=== PATIENT | male | born 1930 | race Caucasian/White ===

== ENCOUNTER 2016-11-07 08:28 | Emergency (ER) | payer MEDICARE, BC ==
[2016-11-07 08:35] VITALS: RESP 16; TEMP 97.4
[2016-11-07] MEDS: KETOROLAC TROMETHAMINE 30 MG/ML SOL IM ONE (09:01)
[2016-11-07] MEDS: CYCLOBENZAPRINE 10 MG TAB PO ONE (09:04)
[2016-11-07] MEDS ORDERED: CYCLOBENZAPRINE 10 MG TAB ONE (09:05)
[2016-11-07] MEDS ORDERED: KETOROLAC TROMETHAMINE 30 MG/ML SOL ONE (09:05)
[2016-11-07] MEDS: LIDOCAINE 5% PATCH 1 PATCH TDM TOP ONE (09:20)
[2016-11-07 10:17] LABS: APPEARANCE,URINE Slightly Cloudy; BILIRUBIN,URINE NEGATIVE (NEGATIVE); COLOR,URINE Yellow; GLUCOSE, URINE (UA) NEGATIVE (NEGATIVE); KETONES,URINE NEGATIVE (NEGATIVE); LEUKOCYTE ESTERASE ,URINE NEGATIVE (NEGATIVE); NITRATE,URINE NEGATIVE (NEGATIVE); OCCULT BLOOD,URINE TRACE INTACT (NEG-TRACE); PH,URINE 5.5; UROBILINOGEN,URINE 0.2 (0.2-1.0 EU)
[2016-11-07 10:26] VITALS: BP 158/92; PULSE 75; O2SAT 99
[2016-11-07 10:40] LABS: RBC,URINE 0-5 (0-3AV/HPF); WBC,URINE 0-2 (0-5AV/HPF)
== END 2016-11-07 12:05 | disposition home or self-care (01) | DRG 552 ==
LOC: ED 08:28
DX: M54.5 Low back pain (principal); M62.830 Muscle spasm of back
CPT/HCPCS: 72120; 81001; 99283; J1885

== ENCOUNTER 2016-11-25 08:35 | Emergency (ER) | payer MEDICARE, BC ==
[2016-11-25] MEDS ORDERED: IBUPROFEN 400 MG TAB ONE (08:48)
[2016-11-25] MEDS ORDERED: APAP/OXYCODONE 325/5 TAB ONE (08:48)
[2016-11-25] MEDS: IBUPROFEN 400 MG TAB PO ONE (08:50)
[2016-11-25] MEDS: APAP/OXYCODONE 325/5 TAB PO ONE (08:50)
[2016-11-25 09:02] VITALS: O2SAT 100
[2016-11-25 09:42] VITALS: RESP 20
[2016-11-25] MEDS ORDERED: KETOROLAC TROMETHAMINE 30 MG/ML SOL ONE (10:48)
[2016-11-25] MEDS: KETOROLAC TROMETHAMINE 30 MG/ML SOL IM ONE ×2 (10:52→10:53)
[2016-11-25 11:26] VITALS: BP 152/85; PULSE 100; TEMP 99.4
[2016-11-25] MEDS ORDERED: DIAZEPAM 5MG/ML SOL ONE (12:13)
[2016-11-25] MEDS: DIAZEPAM 5MG/ML SOL IM ONE (12:15)
== END 2016-11-25 13:10 | disposition home or self-care (01) | DRG 552 ==
LOC: ED 08:35
DX: M54.5 Low back pain (principal); G89.29 Other chronic pain
CPT/HCPCS: 80048; 81001; 85025; 99284; J1885; J3360

== ENCOUNTER 2016-11-25 13:17 | Day surgery (SDC) | payer MEDICARE, BC ==
[2016-11-25 09:47] LABS: BASOPHILS % (AUTO) 1 % (0-3); EOSINOPHILS % (AUTO) 2 % (0-9); HEMATOCRIT 48 % (39-53); MEAN CORPUSCULAR HGB CONC 35.5 gm/dl (32.0-36.0); MEAN CORPUSCULAR VOLUME 88 fL (80-100); MONOCYTES % (AUTO) 6.9 % (0-12); NEUTROPHILS % (AUTO) 84.9 % (37-80)
[2016-11-25 09:54] LABS: APPEARANCE,URINE Cloudy; BILIRUBIN,URINE NEGATIVE (NEGATIVE); COLOR,URINE Yellow; GLUCOSE, URINE (UA) NEGATIVE (NEGATIVE); KETONES,URINE 2+ (NEGATIVE); LEUKOCYTE ESTERASE ,URINE NEGATIVE (NEGATIVE); NITRATE,URINE NEGATIVE (NEGATIVE); OCCULT BLOOD,URINE TRACE INTACT (NEG-TRACE); PH,URINE 8.5; UROBILINOGEN,URINE 0.2 (0.2-1.0 EU)
[2016-11-25 09:55] LABS: CALCIUM 8.8 mg/dl (8.5-10.1); POTASSIUM 3.7 mMol/L (3.5-5.1)
[2016-11-25 10:16] LABS: RBC,URINE 0-1 (0-3AV/HPF)
[2016-11-25 13:42] VITALS: TEMP 97.8
[2016-11-25] MEDS ORDERED: TRIAMCINOLONE ACETONIDE 40 MG/ML SUS ONE (14:24)
[2016-11-25 15:18] VITALS: BP 145/95; PULSE 80; RESP 18; O2SAT 98
== END 2016-11-25 15:10 | disposition home or self-care (01) | DRG 552 ==
LOC: SURG 13:17
PROVIDERS: ATTEND Nurse Anesthetist, Certified Registered
DX: M54.5 Low back pain (principal); G89.29 Other chronic pain; M54.16 Radiculopathy, lumbar region
CPT/HCPCS: 36415; 80048; 81001; 85025; 96372; 99283; 99284; J1885; J3360; J3300

== ENCOUNTER 2017-04-24 09:17 | Outpatient (CLI) | payer MEDICARE, BC ==
[2017-03-19 12:06] VITALS: O2SAT 96
== END 2017-04-24 09:18 | disposition home or self-care (01) | DRG 554 ==
LOC: CONVCARE 09:17
PROVIDERS: ATTEND Orthopaedic Surgery
DX: M17.11 Unilateral primary osteoarthritis, right knee (principal)
CPT/HCPCS: 73564

== ENCOUNTER 2017-05-07 12:30 | Inpatient (IN) | payer MEDICARE, BC ==
[2017-05-21] MEDS ORDERED: LACTATED RINGERS 1,000 ML IV ONE (11:00)
[2017-05-21] MEDS ORDERED: SCOPOLAMINE 1.5MG PATCH TD SCH (11:00)
[2017-05-21] MEDS: SODIUM CHLORIDE 0.9% FLUSH 10 ML SOL IV PRN (11:00)
[2017-05-21] MEDS ORDERED: LACTATED RINGERS 1,000 ML IV SCH (12:00)
[2017-05-21] MEDS ORDERED: DEXAMETHASONE 20 MG/5 ML (4 MG/ML SOL) ONE (12:26)
[2017-05-21] MEDS ORDERED: ONDANSETRON HCL 4 MG/2 ML SOL ONE (12:26)
[2017-05-21] MEDS ORDERED: PROPOFOL 500 MG/50 ML EMU IV ONE (12:26)
[2017-05-21] MEDS ORDERED: LIDOCAINE HCL 1% MPF SOL ONE (12:26)
[2017-05-21] MEDS ORDERED: MIDAZOLAM 2 MG/2 ML SOL ONE (12:26)
[2017-05-21] MEDS ORDERED: TRANEXAMIC ACID 100 MG/ML SOL ONE (12:57)
[2017-05-21] MEDS ORDERED: SODIUM CHLORIDE 20 ML 40 ML ONE (12:57)
[2017-05-21] MEDS ORDERED: CEFAZOLIN SODIUM 1 GM PDS ONE (14:17)
[2017-05-21] MEDS ORDERED: EPHEDRINE SULFATE 50 MG/ML SOL ONE (14:43)
[2017-05-21] MEDS ORDERED: PHENYLEPHRINE HYDROCHLORIDE 10 MG/ML SOL ONE (14:43)
[2017-05-21] MEDS ORDERED: GLYCOPYRROLATE 0.2 MG/ML SOL ONE (14:43)
[2017-05-21] MEDS: BUPIVACAINE LIPOSOME 20 ML SUS ONE ×2 (14:50→15:25)
[2017-05-21] MEDS ORDERED: PROPOFOL 10 MG/ML EMU IV ONE (15:08)
[2017-05-21] MEDS ORDERED: DIPHENHYDRAMINE 25 MG CAP PO PRN (15:34)
[2017-05-21] MEDS ORDERED: SODIUM CHLORIDE 0.9% 500 ML 500 ML IV PRN (15:34)
[2017-05-21] MEDS ORDERED: DIPHENHYDRAMINE 50 MG/ML SOL IV PRN (15:34)
[2017-05-21] MEDS ORDERED: BISACODYL 10 MG SUP PR PRN (15:34)
[2017-05-21] MEDS ORDERED: MAGNESIUM HYDROXIDE 30 ML SUS PO PRN (15:34)
[2017-05-21] MEDS ORDERED: ONDANSETRON 4 MG ODT BU PRN (15:34)
[2017-05-21] MEDS ORDERED: ALUMINUM/MAGNESIUM 30 ML SUS PO PRN (15:34)
[2017-05-21] MEDS ORDERED: FLEET ENEMA PR PRN (15:34)
[2017-05-21] MEDS ORDERED: TEMAZEPAM 15MG 15 MG CAP PO PRN (15:34)
[2017-05-21] MEDS ORDERED: BUPIVACAINE/EPI 0.25% 50 ML SOL ONE (16:24)
[2017-05-21] MEDS: SODIUM CHLORIDE 0.9% FLUSH 10 ML SOL IV SCH (17:28)
[2017-05-21] MEDS: DEXTROSE/SALINE 0.45% 1,000 ML IV SCH (17:32)
[2017-05-21] MEDS: APAP/HYDROCODONE 325/5 TAB PO PRN (20:39)
[2017-05-21] MEDS: ATORVASTATIN 10 MG TAB PO SCH (20:39)
[2017-05-21] MEDS: SENNOSIDES A AND B 8.6 MG TAB PO SCH (20:39)
[2017-05-21] MEDS: TAMSULOSIN HYDROCHLORIDE 0.4 MG CAP PO SCH (20:39)
[2017-05-21] MEDS: ONDANSETRON HCL 4 MG/2 ML SOL IV PRN (20:45)
[2017-05-21] MEDS: CEFAZOLIN (PREMIX) 1 GM 1 GM/50 ML SOL IV SCH (22:05)
[2017-05-21] MEDS: DIAZEPAM 5 MG TAB PO PRN (22:59)
[2017-05-22] MEDS: MORPHINE SULFATE 10 MG/ML SOL IV PRN ×6 (00:04→20:48)
[2017-05-22] MEDS: SODIUM CHLORIDE 0.9% FLUSH 10 ML SOL IV SCH ×3 (00:07→17:42)
[2017-05-22] MEDS: CEFAZOLIN (PREMIX) 1 GM 1 GM/50 ML SOL IV SCH (05:56)
[2017-05-22] MEDS: DEXTROSE/SALINE 0.45% 1,000 ML IV SCH (07:22)
[2017-05-22 07:32] LABS: MEAN CORPUSCULAR HGB CONC 34.6 gm/dl (32.0-36.0)
[2017-05-22] MEDS: ONDANSETRON HCL 4 MG/2 ML SOL IV PRN (08:40)
[2017-05-22] MEDS ORDERED: OMEPRAZOLE 20 MG CAPSULE PO SCH (09:00)
[2017-05-22] MEDS ORDERED: RIVAROXABAN 10 MG TAB PO SCH (09:00)
[2017-05-22] MEDS: ENOXAPARIN 40 MG SOL SC SCH (10:18)
[2017-05-22] MEDS: APAP/HYDROCODONE 325/5 TAB PO PRN ×4 (10:19→21:25)
[2017-05-22] MEDS: PANTOPRAZOLE SODIUM 40 MG ECT PO SCH (10:20)
[2017-05-22] MEDS: METOPROLOL SUCCINATE 25 MG TAB.ER.24H PO SCH (10:20)
[2017-05-22] MEDS ORDERED: SODIUM CHLORIDE 0.9% FLUSH 10 ML SOL IV SCH (13:00)
[2017-05-22] MEDS: DIAZEPAM 5 MG TAB PO PRN (20:18)
[2017-05-22] MEDS: SENNOSIDES A AND B 8.6 MG TAB PO SCH (20:19)
[2017-05-22] MEDS: TAMSULOSIN HYDROCHLORIDE 0.4 MG CAP PO SCH (20:20)
[2017-05-22] MEDS: ATORVASTATIN 10 MG TAB PO SCH (20:20)
[2017-05-22] MEDS: SODIUM CHLORIDE 0.9% FLUSH 10 ML SOL IV PRN (20:49)
[2017-05-23] MEDS: MORPHINE SULFATE 10 MG/ML SOL IV PRN ×2 (00:25→23:05)
[2017-05-23] MEDS: SODIUM CHLORIDE 0.9% FLUSH 10 ML SOL IV SCH ×4 (00:26→20:24)
[2017-05-23] MEDS: APAP/HYDROCODONE 325/5 TAB PO PRN ×4 (05:40→20:22)
[2017-05-23] MEDS: ENOXAPARIN 40 MG SOL SC SCH (08:27)
[2017-05-23] MEDS: PANTOPRAZOLE SODIUM 40 MG ECT PO SCH (08:33)
[2017-05-23] MEDS: METOPROLOL SUCCINATE 25 MG TAB.ER.24H PO SCH (08:33)
[2017-05-23] MEDS: WARFARIN SODIUM 5 MG TAB PO SCH (17:47)
[2017-05-23] MEDS: ATORVASTATIN 10 MG TAB PO SCH (20:22)
[2017-05-23] MEDS: TAMSULOSIN HYDROCHLORIDE 0.4 MG CAP PO SCH (20:22)
[2017-05-23] MEDS: SENNOSIDES A AND B 8.6 MG TAB PO SCH (20:22)
[2017-05-24] MEDS: APAP/HYDROCODONE 325/5 TAB PO PRN ×6 (01:48→20:55)
[2017-05-24] MEDS: SODIUM CHLORIDE 0.9% FLUSH 10 ML SOL IV SCH ×5 (02:29→22:55)
[2017-05-24 06:59] LABS: MEAN CORPUSCULAR HGB CONC 34.5 gm/dl (32.0-36.0)
[2017-05-24] MEDS: PANTOPRAZOLE SODIUM 40 MG ECT PO SCH (09:21)
[2017-05-24] MEDS: METOPROLOL SUCCINATE 25 MG TAB.ER.24H PO SCH (09:22)
[2017-05-24] MEDS: ENOXAPARIN 40 MG SOL SC SCH (09:24)
[2017-05-24] MEDS: WARFARIN SODIUM 5 MG TAB PO SCH (17:08)
[2017-05-24] MEDS: ATORVASTATIN 10 MG TAB PO SCH (20:55)
[2017-05-24] MEDS: TAMSULOSIN HYDROCHLORIDE 0.4 MG CAP PO SCH (20:56)
[2017-05-24] MEDS: SENNOSIDES A AND B 8.6 MG TAB PO SCH (20:56)
[2017-05-25] MEDS: APAP/HYDROCODONE 325/5 TAB PO PRN ×3 (01:10→08:36)
[2017-05-25 07:28] LABS: APPEARANCE,URINE Clear; BILIRUBIN,URINE NEGATIVE (NEGATIVE); COLOR,URINE Yellow; GLUCOSE, URINE (UA) NEGATIVE (NEGATIVE); KETONES,URINE NEGATIVE (NEGATIVE); LEUKOCYTE ESTERASE ,URINE NEGATIVE (NEGATIVE); NITRATE,URINE NEGATIVE (NEGATIVE); OCCULT BLOOD,URINE 2+ (NEG-TRACE)
[2017-05-25 07:47] LABS: RBC,URINE 15-20 (0-3AV/HPF); WBC,URINE 0-2 (0-5AV/HPF)
[2017-05-25 08:01] VITALS: BP 148/74; PULSE 116; RESP 21; TEMP 97.9; O2SAT 96
[2017-05-25] MEDS: ENOXAPARIN 40 MG SOL SC SCH (08:34)
[2017-05-25] MEDS: METOPROLOL SUCCINATE 25 MG TAB.ER.24H PO SCH (08:35)
[2017-05-25] MEDS: SODIUM CHLORIDE 0.9% FLUSH 10 ML SOL IV SCH (08:35)
[2017-05-25] MEDS: PANTOPRAZOLE SODIUM 40 MG ECT PO SCH (08:35)
== END 2017-05-25 11:20 | disposition swing bed (61) | DRG 470 ==
LOC: ACUTE CARE 05-21 10:32
PROVIDERS: ADMIT Orthopaedic Surgery; ATTEND Orthopaedic Surgery
PROC: 0SCC0ZZ Extirpation of Matter from Right Knee Joint, Open Approach (ICD-10-PCS; 2017-05-21)
PROC: 0SRC0J9 Replacement of Right Knee Joint with Synthetic Substitute, Cemented, Open Approach (ICD-10-PCS; principal; 2017-05-21 13:00)
PROC: F02Z1ZZ Dressing Assessment (ICD-10-PCS; 2017-05-22)
PROC: F02Z3ZZ Grooming/Personal Hygiene Assessment (ICD-10-PCS; 2017-05-22)
PROC: F01ZDZZ Gait and/or Balance Assessment (ICD-10-PCS; 2017-05-22)
PROC: F01ZBZZ Bed Mobility Assessment (ICD-10-PCS; 2017-05-22)
DX: M17.11 Unilateral primary osteoarthritis, right knee (principal); I48.91 Unspecified atrial fibrillation; M10.9 Gout, unspecified; Z96.651 Presence of right artificial knee joint; R33.9 Retention of urine, unspecified
CPT/HCPCS: 36415; 51798; 73560; 81001; 84550; 85027; 85610; 94150; 99070; J0690; J1100; J1200; J1650; J2250; J2270; J2405; J7643; A6232; J2001; J2704; L1830; Q3014

== ENCOUNTER 2017-05-20 11:18 | Day surgery (SDC) | payer MEDICARE, BC ==
[2017-05-20 11:28] VITALS: TEMP 97; O2SAT 97
[2017-05-20] MEDS: TRIAMCINOLONE ACETONIDE 40 MG/ML SUS IM ONE (12:02)
[2017-05-20 12:14] VITALS: BP 106/66; PULSE 81; RESP 14
== END 2017-05-20 17:10 | disposition home or self-care (01) | DRG 552 ==
LOC: SURG 11:18
PROVIDERS: ATTEND Nurse Anesthetist, Certified Registered
DX: M54.5 Low back pain (principal); M54.16 Radiculopathy, lumbar region
CPT/HCPCS: J3300

== ENCOUNTER 2017-05-25 09:55 | Inpatient (IN) | payer MEDICARE, BC ==
[2017-05-25] MEDS ORDERED: TEMAZEPAM 15MG 15 MG CAP PO PRN (11:13)
[2017-05-25] MEDS ORDERED: FLEET ENEMA PR PRN (11:13)
[2017-05-25] MEDS ORDERED: BISACODYL 10 MG SUP PR PRN (11:13)
[2017-05-25] MEDS ORDERED: ALUMINUM/MAGNESIUM 30 ML SUS PO PRN (11:13)
[2017-05-25] MEDS: APAP/HYDROCODONE 325/5 TAB PO PRN ×3 (13:41→23:41)
[2017-05-25] MEDS ORDERED: WARFARIN SODIUM 2.5 MG TAB PO SCH (18:00)
[2017-05-25] MEDS ORDERED: WARFARIN SODIUM 5 MG TAB PO SCH (18:00)
[2017-05-25] MEDS: SENNOSIDES A AND B 8.6 MG TAB PO SCH (20:03)
[2017-05-25] MEDS: ATORVASTATIN 10 MG TAB PO SCH (20:04)
[2017-05-25] MEDS: TAMSULOSIN HYDROCHLORIDE 0.4 MG CAP PO SCH (20:04)
[2017-05-25] MEDS: FINASTERIDE 5 MG TAB PO SCH (20:04)
[2017-05-26] MEDS: APAP/HYDROCODONE 325/5 TAB PO PRN ×2 (04:25→07:45)
[2017-05-26] MEDS: MULTIVITAMIN2 1 EA TAB PO SCH (08:51)
[2017-05-26] MEDS: PANTOPRAZOLE SODIUM 40 MG ECT PO SCH (08:51)
[2017-05-26] MEDS: POLYETHYLENE GLYCOL 17 GM/1 TBS PDS PO SCH (08:51)
[2017-05-26] MEDS: METOPROLOL SUCCINATE 25 MG TAB.ER.24H PO SCH (08:52)
[2017-05-26] MEDS: IBUPROFEN 400 MG TAB PO PRN ×2 (10:55→23:09)
[2017-05-26] MEDS ORDERED: WARFARIN SODIUM 1 MG TAB PO SCH (18:00)
[2017-05-26] MEDS ORDERED: LIDOCAINE HCL 2% GEL TOP ONE ×2 (19:40)
[2017-05-26] MEDS ORDERED: LORAZEPAM 2 MG/ML SOL IM PRN (20:49)
[2017-05-26] MEDS: MAGNESIUM HYDROXIDE 30 ML SUS PO SCH (20:59)
[2017-05-26] MEDS: FINASTERIDE 5 MG TAB PO SCH (20:59)
[2017-05-26] MEDS: SENNOSIDES A AND B 8.6 MG TAB PO SCH (21:00)
[2017-05-26] MEDS: TAMSULOSIN HYDROCHLORIDE 0.4 MG CAP PO SCH (21:04)
[2017-05-26] MEDS: ATORVASTATIN 10 MG TAB PO SCH (21:04)
[2017-05-27] MEDS: OXYCODONE HYDROCHLORIDE 5 MG TAB PO PRN ×2 (04:27→18:51)
[2017-05-27] MEDS: PANTOPRAZOLE SODIUM 40 MG ECT PO SCH (08:33)
[2017-05-27] MEDS: IBUPROFEN 400 MG TAB PO PRN ×2 (08:33→15:52)
[2017-05-27] MEDS: MULTIVITAMIN2 1 EA TAB PO SCH (08:33)
[2017-05-27] MEDS: METOPROLOL SUCCINATE 25 MG TAB.ER.24H PO SCH (08:34)
[2017-05-27] MEDS: POLYETHYLENE GLYCOL 17 GM/1 TBS PDS PO SCH (08:34)
[2017-05-27] MEDS ORDERED: WARFARIN SODIUM 2.5 MG TAB PO ONE (18:00)
[2017-05-27] MEDS: SENNOSIDES A AND B 8.6 MG TAB PO SCH (20:57)
[2017-05-27] MEDS: FINASTERIDE 5 MG TAB PO SCH (20:57)
[2017-05-27] MEDS: TAMSULOSIN HYDROCHLORIDE 0.4 MG CAP PO SCH (20:58)
[2017-05-27] MEDS: ATORVASTATIN 10 MG TAB PO SCH (20:58)
[2017-05-27] MEDS: MAGNESIUM HYDROXIDE 30 ML SUS PO SCH (20:59)
[2017-05-28] MEDS: OXYCODONE HYDROCHLORIDE 5 MG TAB PO PRN ×4 (01:16→18:10)
[2017-05-28] MEDS: SODIUM CHLORIDE 0.9% FLUSH 10 ML SOL IV SCH ×2 (03:04→11:20)
[2017-05-28] MEDS: IBUPROFEN 400 MG TAB PO PRN ×2 (03:06→20:45)
[2017-05-28] MEDS: MULTIVITAMIN2 1 EA TAB PO SCH (08:35)
[2017-05-28] MEDS: POLYETHYLENE GLYCOL 17 GM/1 TBS PDS PO SCH (08:35)
[2017-05-28] MEDS: PANTOPRAZOLE SODIUM 40 MG ECT PO SCH (08:35)
[2017-05-28] MEDS: METOPROLOL SUCCINATE 25 MG TAB.ER.24H PO SCH (08:35)
[2017-05-28] MEDS ORDERED: WARFARIN SODIUM 2 MG TAB PO ONE (18:00)
[2017-05-28] MEDS: SENNOSIDES A AND B 8.6 MG TAB PO SCH (20:41)
[2017-05-28] MEDS: TAMSULOSIN HYDROCHLORIDE 0.4 MG CAP PO SCH (20:42)
[2017-05-28] MEDS: ATORVASTATIN 10 MG TAB PO SCH (20:42)
[2017-05-28] MEDS: FINASTERIDE 5 MG TAB PO SCH (20:42)
[2017-05-28] MEDS: MAGNESIUM HYDROXIDE 30 ML SUS PO SCH (20:45)
[2017-05-29] MEDS: OXYCODONE HYDROCHLORIDE 5 MG TAB PO PRN ×4 (03:34→20:41)
[2017-05-29] MEDS: METOPROLOL SUCCINATE 25 MG TAB.ER.24H PO SCH (08:48)
[2017-05-29] MEDS: MULTIVITAMIN2 1 EA TAB PO SCH (08:48)
[2017-05-29] MEDS: PANTOPRAZOLE SODIUM 40 MG ECT PO SCH (08:48)
[2017-05-29] MEDS: POLYETHYLENE GLYCOL 17 GM/1 TBS PDS PO SCH (08:51)
[2017-05-29] MEDS: IBUPROFEN 400 MG TAB PO PRN ×2 (10:56→18:05)
[2017-05-29] MEDS ORDERED: WARFARIN SODIUM 2.5 MG TAB PO SCH (18:00)
[2017-05-29] MEDS: FINASTERIDE 5 MG TAB PO SCH (20:38)
[2017-05-29] MEDS: ATORVASTATIN 10 MG TAB PO SCH (20:39)
[2017-05-29] MEDS: MAGNESIUM HYDROXIDE 30 ML SUS PO SCH (20:39)
[2017-05-29] MEDS: TAMSULOSIN HYDROCHLORIDE 0.4 MG CAP PO SCH (20:39)
[2017-05-29] MEDS: SENNOSIDES A AND B 8.6 MG TAB PO SCH (20:40)
[2017-05-30] MEDS: PANTOPRAZOLE SODIUM 40 MG ECT PO SCH (09:24)
[2017-05-30] MEDS: POLYETHYLENE GLYCOL 17 GM/1 TBS PDS PO SCH (09:24)
[2017-05-30] MEDS: MULTIVITAMIN2 1 EA TAB PO SCH (09:24)
[2017-05-30] MEDS: METOPROLOL SUCCINATE 25 MG TAB.ER.24H PO SCH (09:28)
[2017-05-30] MEDS: OXYCODONE HYDROCHLORIDE 5 MG TAB PO PRN ×2 (11:41→15:46)
[2017-05-30] MEDS: IBUPROFEN 400 MG TAB PO PRN (17:17)
[2017-05-30] MEDS ORDERED: WARFARIN SODIUM 2 MG TAB PO SCH (18:00)
[2017-05-30 18:27] LABS: BASOPHILS % (AUTO) 1 % (0-3); EOSINOPHILS % (AUTO) 1 % (0-9); HEMATOCRIT 36 % (39-53); MEAN CORPUSCULAR HGB CONC 36.4 gm/dl (32.0-36.0); MEAN CORPUSCULAR VOLUME 90 fL (80-100); MONOCYTES % (AUTO) 7.8 % (0-12); NEUTROPHILS % (AUTO) 85.3 % (37-80)
[2017-05-30] MEDS: FINASTERIDE 5 MG TAB PO SCH (21:36)
[2017-05-30] MEDS: ATORVASTATIN 10 MG TAB PO SCH (21:36)
[2017-05-30] MEDS: TAMSULOSIN HYDROCHLORIDE 0.4 MG CAP PO SCH (21:36)
[2017-05-30] MEDS: SENNOSIDES A AND B 8.6 MG TAB PO SCH (21:37)
[2017-05-30] MEDS: MAGNESIUM HYDROXIDE 30 ML SUS PO SCH (21:37)
[2017-05-31] MEDS: OXYCODONE HYDROCHLORIDE 5 MG TAB PO PRN (03:31)
[2017-05-31 07:30] LABS: BASOPHILS % (AUTO) 1 % (0-3); EOSINOPHILS % (AUTO) 2 % (0-9); HEMATOCRIT 34 % (39-53); MEAN CORPUSCULAR HGB CONC 35.9 gm/dl (32.0-36.0); MEAN CORPUSCULAR VOLUME 90 fL (80-100); MONOCYTES % (AUTO) 8.9 % (0-12); NEUTROPHILS % (AUTO) 81.5 % (37-80)
[2017-05-31] MEDS: POLYETHYLENE GLYCOL 17 GM/1 TBS PDS PO SCH (10:33)
[2017-05-31] MEDS: PANTOPRAZOLE SODIUM 40 MG ECT PO SCH (10:33)
[2017-05-31] MEDS: MULTIVITAMIN2 1 EA TAB PO SCH (10:34)
[2017-05-31] MEDS: METOPROLOL SUCCINATE 25 MG TAB.ER.24H PO SCH (10:34)
[2017-05-31 10:40] VITALS: BP 119/78; PULSE 104; RESP 21; TEMP 97.6; O2SAT 97
== END 2017-05-31 16:35 | disposition home or self-care (01) | DRG 561 ==
LOC: ACUTE CARE 11:25
PROVIDERS: ADMIT Family Medicine; ATTEND Family Medicine
PROC: F01ZDFZ Gait and/or Balance Assessment using Assistive, Adaptive, Supportive or Protective Equipment (ICD-10-PCS; 2017-05-25)
PROC: F01ZBZZ Bed Mobility Assessment (ICD-10-PCS; 2017-05-25)
PROC: F01ZCZZ Transfer Assessment (ICD-10-PCS; 2017-05-25)
PROC: F02Z1ZZ Dressing Assessment (ICD-10-PCS; principal; 2017-05-26)
PROC: F02Z0ZZ Bathing/Showering Assessment (ICD-10-PCS; 2017-05-26)
PROC: F02Z3ZZ Grooming/Personal Hygiene Assessment (ICD-10-PCS; 2017-05-26)
DX: Z47.1 Aftercare following joint replacement surgery (principal); I48.91 Unspecified atrial fibrillation; Z96.651 Presence of right artificial knee joint; R35.0 Frequency of micturition
CPT/HCPCS: 36415; 51798; 85025; 85610; 87040; J2060; A6219; A6232

== ENCOUNTER 2017-06-04 09:51 | Outpatient (CLI) | payer MEDICARE, BC ==
[2017-05-31 10:40] VITALS: O2SAT 97
[2017-06-04 10:32] LABS: APPEARANCE,URINE Cloudy; BILIRUBIN,URINE 1+ (NEGATIVE); COLOR,URINE Dark yellow; GLUCOSE, URINE (UA) NEGATIVE (NEGATIVE); KETONES,URINE TRACE (NEGATIVE); LEUKOCYTE ESTERASE ,URINE 2+ (NEGATIVE); NITRATE,URINE POSITIVE (NEGATIVE); OCCULT BLOOD,URINE 3+ (NEG-TRACE); PH,URINE 5.5
[2017-06-04 10:44] LABS: ICTOTEST,URINE NEGATIVE (NEGATIVE)
[2017-06-04 10:46] LABS: RBC,URINE UNABLE (0-3AV/HPF); WBC,URINE TNTC (0-5AV/HPF)
== END 2017-06-04 09:52 | disposition home or self-care (01) | DRG 696 ==
LOC: CONVCARE 09:51
PROVIDERS: ATTEND Orthopaedic Surgery
DX: R35.0 Frequency of micturition (principal); Z96.651 Presence of right artificial knee joint
CPT/HCPCS: 81001; 87077; 87088; 87186

== ENCOUNTER 2017-06-05 03:19 | Emergency (ER) | payer MEDICARE, BC ==
[2017-06-05 03:26] VITALS: BP 150/102; PULSE 108; RESP 18; TEMP 98.5; O2SAT 100
== END 2017-06-05 04:30 | disposition home or self-care (01) | DRG 696 ==
LOC: ED 03:19
DX: R33.9 Retention of urine, unspecified (principal); Z96.659 Presence of unspecified artificial knee joint
CPT/HCPCS: 99282

== ENCOUNTER 2017-07-03 09:21 | Outpatient (CLI) | payer MEDICARE, BC ==
[2017-06-05 03:26] VITALS: O2SAT 100
== END 2017-07-03 09:22 | disposition home or self-care (01) | DRG 561 ==
LOC: CONVCARE 09:21
PROVIDERS: ATTEND Orthopaedic Surgery
DX: Z47.1 Aftercare following joint replacement surgery (principal); Z96.651 Presence of right artificial knee joint
CPT/HCPCS: 73562

== ENCOUNTER 2017-08-19 12:55 | Day surgery (SDC) | payer MEDICARE, BC ==
[2017-08-19] MEDS ORDERED: BUPIVACAINE HCL 0.25% MPF 10 ML SOL INFIL ONE (13:23)
[2017-08-19] MEDS ORDERED: LIDOCAINE HCL 1% MPF SOL ONE (13:23)
[2017-08-19] MEDS: TRIAMCINOLONE ACETONIDE 40 MG/ML SUS ONE ×2 (13:59→14:12)
[2017-08-19 14:31] VITALS: BP 140/96; PULSE 96; RESP 18; TEMP 97.7; O2SAT 97
== END 2017-08-19 15:05 | disposition home or self-care (01) | DRG 554 ==
LOC: SURG 12:55
PROVIDERS: ATTEND Nurse Anesthetist, Certified Registered
DX: M12.88 Other specific arthropathies, not elsewhere classified, other specified site (principal)
CPT/HCPCS: J2001; J3300

== ENCOUNTER 2017-09-04 09:29 | Day surgery (SDC) | payer MEDICARE, BC ==
[2017-09-04 10:13] VITALS: O2SAT 98
[2017-09-04] MEDS ORDERED: LIDOCAINE HCL 2% MPF SOL ONE (10:38)
[2017-09-04] MEDS ORDERED: LIDOCAINE HCL 1% MPF SOL ONE ×2 (10:39)
[2017-09-04] MEDS: DEXAMETHASONE SOD PHOS PF 10 MG/ML SOL IJ ONE ×2 (11:05→11:14)
[2017-09-04 11:41] VITALS: BP 154/87; PULSE 67; RESP 20; TEMP 97
== END 2017-09-04 12:10 | disposition home or self-care (01) | DRG 554 ==
LOC: SURG 09:29
PROVIDERS: ATTEND Nurse Anesthetist, Certified Registered
DX: M12.88 Other specific arthropathies, not elsewhere classified, other specified site (principal)
CPT/HCPCS: J1100; J2001

== ENCOUNTER 2017-09-29 11:57 | Day surgery (SDC) | payer MEDICARE, BC ==
[2017-09-29] MEDS ORDERED: DIAZEPAM 5 MG TAB ONE (12:33)
[2017-09-29] MEDS ORDERED: LIDOCAINE HCL 2% MPF SOL ONE (12:40)
[2017-09-29] MEDS ORDERED: BUPIVACAINE HCL 0.25% MPF 10 ML SOL INFIL ONE (12:40)
[2017-09-29] MEDS ORDERED: LIDOCAINE HCL 1% MPF SOL ONE (12:40)
[2017-09-29 12:42] VITALS: TEMP 98.2
[2017-09-29 13:15] VITALS: RESP 14
[2017-09-29 13:45] VITALS: O2SAT 99
[2017-09-29] MEDS: TRIAMCINOLONE ACETONIDE 40 MG/ML SUS ONE ×2 (13:48→13:59)
[2017-09-29 13:56] VITALS: BP 121/72
[2017-09-29 13:59] VITALS: PULSE 702
== END 2017-09-29 15:04 | disposition home or self-care (01) | DRG 554 ==
LOC: SURG 11:57
PROVIDERS: ATTEND Nurse Anesthetist, Certified Registered
DX: M12.88 Other specific arthropathies, not elsewhere classified, other specified site (principal)
CPT/HCPCS: A9270-GY; J2001; J3300

== ENCOUNTER 2017-10-07 12:18 | Day surgery (SDC) | payer MEDICARE, BC ==
[2017-10-07] MEDS ORDERED: DIAZEPAM 5 MG TAB ONE (12:30)
[2017-10-07 12:36] VITALS: RESP 16
[2017-10-07] MEDS ORDERED: LIDOCAINE HCL 1% MPF SOL ONE (12:52)
[2017-10-07] MEDS ORDERED: LIDOCAINE HCL 2% MPF SOL ONE (12:52)
[2017-10-07] MEDS ORDERED: BUPIVACAINE HCL 0.25% MPF 10 ML SOL INFIL ONE (12:52)
[2017-10-07] MEDS: TRIAMCINOLONE ACETONIDE 40 MG/ML SUS ONE ×2 (13:35→13:38)
[2017-10-07 13:48] VITALS: BP 120/72; PULSE 78; TEMP 98.9; O2SAT 98
== END 2017-10-07 14:27 | disposition home or self-care (01) | DRG 554 ==
LOC: SURG 12:18
PROVIDERS: ATTEND Nurse Anesthetist, Certified Registered
DX: M12.88 Other specific arthropathies, not elsewhere classified, other specified site (principal)
CPT/HCPCS: A9270-GY; J2001; J3300

== ENCOUNTER 2017-11-11 10:58 | Day surgery (SDC) | payer MEDICARE, BC ==
[2017-11-11] MEDS ORDERED: BUPIVACAINE HCL 0.25% MPF 10 ML SOL INFIL ONE (11:33)
[2017-11-11] MEDS: DEXAMETHASONE SOD PHOS PF 10 MG/ML SOL IJ ONE ×2 (11:50→11:55)
[2017-11-11 12:16] VITALS: BP 124/74; PULSE 92; RESP 16; TEMP 99.3; O2SAT 96
== END 2017-11-11 12:47 | disposition home or self-care (01) | DRG 552 ==
LOC: SURG 10:58
PROVIDERS: ATTEND Nurse Anesthetist, Certified Registered
DX: M48.062 Spinal stenosis, lumbar region with neurogenic claudication (principal)
CPT/HCPCS: J1100

== ENCOUNTER 2018-01-05 14:11 | Day surgery (SDC) | payer MEDICARE, BC ==
[2018-01-05 14:39] VITALS: TEMP 98.6
[2018-01-05] MEDS ORDERED: BUPIVACAINE HCL 0.25% MPF 10 ML SOL INFIL ONE (14:51)
[2018-01-05 15:04] LABS: INR 1.19 (0.86-1.12)
[2018-01-05] MEDS: DEXAMETHASONE SOD PHOS PF 10 MG/ML SOL IJ ONE ×2 (15:21→15:29)
[2018-01-05 15:47] VITALS: BP 134/72; PULSE 69; RESP 18; O2SAT 96
== END 2018-01-05 16:25 | disposition home or self-care (01) | DRG 552 ==
LOC: SURG 14:11
PROVIDERS: ATTEND Nurse Anesthetist, Certified Registered
DX: M48.062 Spinal stenosis, lumbar region with neurogenic claudication (principal); Z79.01 Long term (current) use of anticoagulants
CPT/HCPCS: 85610; J1100

== ENCOUNTER 2018-06-18 08:34 | Outpatient (CLI) | payer MEDICARE, BC ==
[2018-01-05 15:47] VITALS: O2SAT 96
== END 2018-06-18 08:35 | disposition home or self-care (01) | DRG 561 ==
LOC: CONVCARE 08:34
PROVIDERS: ATTEND Orthopaedic Surgery
DX: Z47.1 Aftercare following joint replacement surgery (principal); Z96.651 Presence of right artificial knee joint
CPT/HCPCS: 73562